=== PATIENT | female | born 1960 | race Caucasian/White ===

== ENCOUNTER 2017-10-04 09:08 | Day surgery (SDC) | payer OTHER ==
[~2017-10-04 09:08] MED LIST: PROPOFOL 500 MG/50 ML EMU IV ONE
[2017-10-04 11:48] VITALS: TEMP 98.6
[2017-10-04 11:59] VITALS: RESP 12
[2017-10-04 12:20] VITALS: BP 137/101; PULSE 86; O2SAT 100
== END 2017-10-04 12:30 | disposition home or self-care (01) | DRG 951 ==
LOC: SURG 09:08
PROVIDERS: ATTEND Internal Medicine Gastroenterology
DX: Z12.11 Encounter for screening for malignant neoplasm of colon (principal); K57.30 Diverticulosis of large intestine without perforation or abscess without bleeding; K64.8 Other hemorrhoids
CPT/HCPCS: J2704

== ENCOUNTER 2017-11-10 15:16 | Outpatient (CLI) | payer OTHER ==
[2017-10-04 12:20] VITALS: O2SAT 100
== END 2017-11-10 15:17 | disposition home or self-care (01) | DRG 554 ==
LOC: CONVCARE 15:16
PROVIDERS: ATTEND Orthopaedic Surgery
DX: M17.12 Unilateral primary osteoarthritis, left knee (principal); M23.222 Derangement of posterior horn of medial meniscus due to old tear or injury, left knee; M23.92 Unspecified internal derangement of left knee
CPT/HCPCS: 73560

== ENCOUNTER 2018-01-11 10:56 | Emergency (ER) | payer OTHER ==
[2018-01-11] MEDS ORDERED: ASPIRIN 81 MG CHEWABLE CTB PO ONE (11:03)
[2018-01-11 11:09] VITALS: TEMP 98.2
[2018-01-11 11:20] LABS: BASOPHILS % (AUTO) 1 % (0-3); EOSINOPHILS % (AUTO) 4 % (0-9); HEMATOCRIT 41 % (35-47); HEMOGLOBIN 14.4 gm/dl (12.0-15.5); LYMPHOCYTES % (AUTO) 26.2 % (10-50); MEAN CORPUSCULAR HEMOGLOBIN 30.2 pg (27.0-32.0); MEAN CORPUSCULAR HGB CONC 35.5 gm/dl (32.0-36.0); MEAN CORPUSCULAR VOLUME 85 fL (81-99); MONOCYTES % (AUTO) 7.4 % (0-12); NEUTROPHILS % (AUTO) 61.3 % (37-80)
[2018-01-11 11:42] LABS: BLOOD UREA NITROGEN 29 mg/dl (7-18); CALCIUM 9.7 mg/dl (8.5-10.1); CARBON DIOXIDE 24.9 mEq/L (21-32); CHLORIDE 106 mMol/L (98-107); CREATININE 0.83 mg/dl (0.60-1.00); GLOM FILT RATE 70 mL/min (>60); GLUCOSE 115 mg/dl (74-106); POTASSIUM 3.9 mMol/L (3.5-5.1); SODIUM 141 mMol/L (136-145); TROP I < 0.017 ng/ml (0.000-0.056)
[2018-01-11 14:30] VITALS: BP 130/86; PULSE 87; RESP 16; O2SAT 96
== END 2018-01-11 14:20 | disposition home or self-care (01) | DRG 313 ==
LOC: ED 10:56
DX: R07.89 Other chest pain (principal)
CPT/HCPCS: 36415; 71045; 80048; 84484; 85025; 93005; 99284; 99285